=== PATIENT | male | born 1955 | race Two or more races ===

== ENCOUNTER 2024-01-17 09:26 | Inpatient (IN) | payer OTHER ==
[~2024-01-17] VITALS: Ht 170.2 cm; Wt 94.2 kg
[2024-01-17] MEDS: ASPirin 325 MG TAB PO ONE (10:04)
[2024-01-17] MEDS: methylPREDNISolone SOD SUCC 125 MG/2 ML VL IV ONE (10:40)
[2024-01-17 10:56] LABS: Basophils # (auto) 0.1 10 ^3/uL (0-0.2); Basophils % (auto) 0.5 % (0.0-2.0); Eosinophils # (auto) 0.8 10 ^3/uL (0-0.8); Eosinophils % (auto) 6.5 % (0.0-7.0); Hematocrit 48.6 % (41.0-53.0); Hemoglobin 16.6 g/dL (13.5-17.5); Lymphocytes # (auto) 3.9 10 ^3/uL (0.4-5.4); Lymphocytes % (auto) 31.2 % (10.0-50.0); Mean Corpuscular Hemoglobin 31.4 pg (28.0-32.0); Mean Corpuscular Hgb Conc. 34.3 g/dL (32.0-36.0); Mean Corpuscular Volume 91.7 fL (80.0-100.0); Monocytes # (auto) 0.9 10 ^3/uL (0-1.3); Neutrophils # (auto) 6.8 10 ^3/uL (1.6-8.6); Neutrophils % (auto) 54.8 % (37.0-80.0); Nucleated Red Blood Cells % 0.1 %; Platelet Count (auto) 294 10^3/uL (140-450); Red Blood Cells 5.29 10^6/uL (4.5-5.90); White Blood Cell 12.5 10^3/uL (4.4-10.8)
[2024-01-17 11:05] LABS: Chloride 101 mmol/L (98-107); Potassium 3.3 mmol/L (3.5-5.1); Sodium 136 mmol/L (136-145)
[2024-01-17 11:06] LABS: Anion Gap 6 (5-15); Carbon Dioxide 29 mmol/L (20-31)
[2024-01-17 11:11] LABS: BUN/Creatinine Ratio 12.1 (10.0-20.0); Blood Urea Nitrogen 8 mg/dL (9-23); Glucose 204 mg/dL (74-106)
[2024-01-17] MEDS ORDERED: hydrALAZINE HCL 20 MG/ML VL IV PRN (16:30)
[2024-01-17] MEDS ORDERED: ALBUTEROL SULF 2.5 MG/0.5ML(0.5%) NEB SOLN NEB PRN (16:30)
[2024-01-17] MEDS ORDERED: IPRATROPIUM BROM 0.5 MG/2.5ML INH SOL NEB PRN (16:30)
[2024-01-17] MEDS ORDERED: ONDANSETRON HCL 4 MG/2 ML VIAL IV PRN (16:30)
[2024-01-17] MEDS: POTASSIUM CHL 20 Meq TABLET PO ONE (16:30)
[2024-01-17] MEDS ORDERED: DEXTROSE (50%) 50ML SYRG IV PRN (16:30)
[2024-01-17 16:42] VITALS: BP 138/74; PULSE 75; RESP 20; TEMP 97.3; O2SAT 94
[2024-01-17] MEDS: InsuLIN REG 1unit/0.01ml Soln (100units/ml) SC SCH ×2 (17:00→22:59)
[2024-01-17] MEDS ORDERED: NITROGLYCERIN 0.4 MG SL TAB SL PRN (17:30)
[2024-01-17] MEDS ORDERED: MORPHINE SULFATE INJ 2 MG/ml SYRG IV PRN (17:30)
[2024-01-17] MEDS: ACCU-CHEK COMFORT CURVE STRIP VI SCH (20:00)
[2024-01-17] MEDS: methylPREDNISolone SOD SUCC 40 MG/ML VL IV SCH (20:07)
[2024-01-17 20:30] VITALS: PULSE 74; RESP 18; O2SAT 94
[2024-01-17] MEDS: SODIUM CHLORIDE 0.9% 1,000 ML IV SCH (20:50)
[2024-01-17] MEDS: AZITHROMYCIN 500MG/ 250ML 250 ML IV ONE (20:50)
[2024-01-17 22:03] VITALS: BP 141/82; PULSE 69; RESP 18; TEMP 98; O2SAT 93
[2024-01-17] MEDS: FAMOTIDINE (10MG/ML) 2ML VL IV SCH (22:53)
[2024-01-17] MEDS: ATORVASTATIN 20 MG TAB PO SCH (22:55)
[2024-01-17] MEDS: HYDROcodone-ACET 5/325MG TAB PO PRN (23:17)
[2024-01-17] MEDS ORDERED: SEMA2INJ3 SC (23:32)
[2024-01-17] MEDS ORDERED: INSUINJ37 SC (23:32)
[2024-01-17] MEDS ORDERED: AMLO1TAB22 PO (23:32)
[2024-01-17] MEDS ORDERED: ATOR-507 PO (23:32)
[2024-01-17] MEDS ORDERED: LOSA-534 PO (23:32)
[2024-01-17] MEDS ORDERED: CHLO25TA2 PO (23:32)
[2024-01-17] MEDS ORDERED: METO-289 PO (23:32)
[2024-01-18] VITALS (10 sets, daily range): BP systolic 113–159; BP diastolic 64–93; PULSE 75–92; RESP 17–20; TEMP 97.6–99.1; O2SAT 89–97
[2024-01-18 03:34] LABS: Urine Bacteria None Seen /hpf (None Seen); Urine WBC None Seen /hpf (0 - 3)
[2024-01-18 04:02] LABS: Urine Blood Negative /uL (Negative); Urine Clarity Clear (Clear); Urine Color Light-Yellow (Yellow); Urine Protein, UAD Negative (Negative); Urine Specific Gravity 1.027 (1.001-1.035); Urine Urobilinogen Normal (Negative)
[2024-01-18 06:32] LABS: Basophils # (auto) 0.1 10 ^3/uL (0-0.2); Basophils % (auto) 0.3 % (0.0-2.0); Eosinophils # (auto) 0 10 ^3/uL (0-0.8); Hematocrit 45.3 % (41.0-53.0); Hemoglobin 15.5 g/dL (13.5-17.5); Lymphocytes # (auto) 2.9 10 ^3/uL (0.4-5.4); Lymphocytes % (auto) 16.7 % (10.0-50.0); Mean Corpuscular Hemoglobin 31.4 pg (28.0-32.0); Mean Corpuscular Hgb Conc. 34.3 g/dL (32.0-36.0); Mean Corpuscular Volume 91.5 fL (80.0-100.0); Monocytes # (auto) 0.6 10 ^3/uL (0-1.3); Monocytes % (auto) 3.8 % (0.0-12.0); Neutrophils # (auto) 13.6 10 ^3/uL (1.6-8.6); Neutrophils % (auto) 79.2 % (37.0-80.0); Nucleated Red Blood Cells % 0.1 %; Platelet Count (auto) 308 10^3/uL (140-450); Red Blood Cells 4.95 10^6/uL (4.5-5.90); White Blood Cell 17.1 10^3/uL (4.4-10.8)
[2024-01-18 06:59] LABS: Alanine Aminotransferase 19 U/L (7-40); Albumin 4.1 g/dL (3.2-4.8); Alkaline Phosphatase 64 U/L (46-116); Anion Gap 9 (5-15); BUN/Creatinine Ratio 20.3 (10.0-20.0); Blood Urea Nitrogen 15 mg/dL (9-23); Calcium 9.7 mg/dL (8.7-10.4); Carbon Dioxide 26 mmol/L (20-31); Chloride 100 mmol/L (98-107); Glucose 290 mg/dL (74-106); Potassium 3.6 mmol/L (3.5-5.1); Sodium 135 mmol/L (136-145)
[2024-01-18 07:00] LABS: Aspartate Aminotransferase 11 U/L (13-40); Bilirubin, Total 0.5 mg/dL (0.2-1.0); Total Protein 6.6 g/dL (5.7-8.2)
[2024-01-18] MEDS: ACETAMINOPHEN 325 MG TAB PO PRN (09:01)
[2024-01-18] MEDS: ASPirin 81 mg TAB PO SCH (09:12)
[2024-01-18] MEDS: AZITHROMYCIN 500MG/ 250ML 250 ML IV SCH (09:35)
[2024-01-18] MEDS: cefTRIAXone 1GM/50ML D5W 50 ML IV SCH (16:30)
[2024-01-18] MEDS ORDERED: IPRATROPIUM BROM 0.5 MG/2.5ML INH SOL ONE (18:02)
[2024-01-18] MEDS ORDERED: ALBUTEROL SULF 2.5 MG/0.5ML(0.5%) NEB SOLN ONE (18:02)
[2024-01-18] MEDS: ALBUTEROL SULF 2.5 MG/0.5ML(0.5%) NEB SOLN NEB SCH (18:51)
[2024-01-18] MEDS: IPRATROPIUM BROM 0.5 MG/2.5ML INH SOL NEB SCH (18:51)
[2024-01-18] MEDS: NEOMYCIN-POLYM-GRAM OPTH(EYE) SOL 10ML EACHEYE SCH (20:39)
[2024-01-18] MEDS: INSULIN LANTUS (GLARGINE) 1 /0.01ml (100units/ml) SC SCH (23:29)
[2024-01-18] MEDS: DOCUSATE SOD 100 MG CAP PO PRN (23:40)
[2024-01-19] VITALS (13 sets, daily range): BP systolic 129–141; BP diastolic 70–82; PULSE 65–80; RESP 15–18; TEMP 97.2–97.9; O2SAT 90–99
[2024-01-19 07:05] LABS: Chloride 102 mmol/L (98-107); Potassium 3.6 mmol/L (3.5-5.1); Sodium 137 mmol/L (136-145)
[2024-01-19 07:06] LABS: Anion Gap 7 (5-15); Calcium 9.8 mg/dL (8.7-10.4); Carbon Dioxide 28 mmol/L (20-31)
[2024-01-19 07:08] LABS: Basophils # (auto) 0 10 ^3/uL (0-0.2); Basophils % (auto) 0.1 % (0.0-2.0); Eosinophils # (auto) 0 10 ^3/uL (0-0.8); Hematocrit 45.5 % (41.0-53.0); Hemoglobin 15.5 g/dL (13.5-17.5); Lymphocytes % (auto) 19.8 % (10.0-50.0); Mean Corpuscular Hemoglobin 31.7 pg (28.0-32.0); Mean Corpuscular Hgb Conc. 34.1 g/dL (32.0-36.0); Mean Corpuscular Volume 92.9 fL (80.0-100.0); Monocytes # (auto) 1.2 10 ^3/uL (0-1.3); Neutrophils # (auto) 15.2 10 ^3/uL (1.6-8.6); Neutrophils % (auto) 74.1 % (37.0-80.0); Platelet Count (auto) 313 10^3/uL (140-450); Red Cell Distribution Width 13.7 % (11.8-14.3); White Blood Cell 20.5 10^3/uL (4.4-10.8)
[2024-01-19 07:11] LABS: BUN/Creatinine Ratio 24.1 (10.0-20.0); Blood Urea Nitrogen 19 mg/dL (9-23); Glucose 234 mg/dL (74-106)
[2024-01-19] MEDS ORDERED: DEXTROSE (50%) 50ML SYRG IV PRN ×2 (09:45→13:00)
[2024-01-19] MEDS: EMPAGLIFLOZIN 10 MG TAB PO SCH (11:30)
[2024-01-19] MEDS ORDERED: ACCU-CHEK COMFORT CURVE STRIP VI SCH (12:00)
[2024-01-19] MEDS ORDERED: InsuLIN REG 1unit/0.01ml Soln (100units/ml) SC SCH (12:00)
[2024-01-19] MEDS: InsuLIN REG 1unit/0.01ml Soln (100units/ml) SC ONE (17:00)
[2024-01-19] MEDS: ACCU-CHEK COMFORT CURVE STRIP VI SCH (19:38)
[2024-01-19] MEDS: InsuLIN REG 1unit/0.01ml Soln (100units/ml) SC SCH (19:51)
[2024-01-20] VITALS (11 sets, daily range): BP systolic 101–136; BP diastolic 38–82; PULSE 64–88; RESP 14–76; TEMP 97.5–98.3; O2SAT 94–98
[2024-01-20 08:31] LABS: Basophils # (auto) 0.1 10 ^3/uL (0-0.2); Basophils % (auto) 0.7 % (0.0-2.0); Eosinophils # (auto) 0.2 10 ^3/uL (0-0.8); Eosinophils % (auto) 1.8 % (0.0-7.0); Hematocrit 51.8 % (41.0-53.0); Hemoglobin 17.5 g/dL (13.5-17.5); Lymphocytes # (auto) 5.7 10 ^3/uL (0.4-5.4); Lymphocytes % (auto) 46.2 % (10.0-50.0); Mean Corpuscular Hemoglobin 31.3 pg (28.0-32.0); Mean Corpuscular Hgb Conc. 33.8 g/dL (32.0-36.0); Mean Corpuscular Volume 92.6 fL (80.0-100.0); Monocytes # (auto) 0.9 10 ^3/uL (0-1.3); Monocytes % (auto) 7.1 % (0.0-12.0); Neutrophils # (auto) 5.4 10 ^3/uL (1.6-8.6); Neutrophils % (auto) 44.2 % (37.0-80.0); Nucleated Red Blood Cells % 0.1 %; Platelet Count (auto) 325 10^3/uL (140-450); Red Blood Cells 5.59 10^6/uL (4.5-5.90); Red Cell Distribution Width 14.1 % (11.8-14.3); White Blood Cell 12.3 10^3/uL (4.4-10.8)
[2024-01-20 08:44] LABS: Anion Gap 8 (5-15); Carbon Dioxide 31 mmol/L (20-31); Chloride 102 mmol/L (98-107); Potassium 3.3 mmol/L (3.5-5.1); Sodium 141 mmol/L (136-145)
[2024-01-20 08:46] LABS: Calcium 9.9 mg/dL (8.7-10.4)
[2024-01-20 08:50] LABS: Glucose 152 mg/dL (74-106)
[2024-01-20 08:51] LABS: Blood Urea Nitrogen 15 mg/dL (9-23)
[2024-01-20] MEDS: POTASSIUM EFFERVESENT TAB 25 MEQ PO ONE (14:22)
== END 2024-01-20 18:15 | disposition home or self-care (01) | DRG 177 ==
LOC: ER 09:26 → TELE 17:28 → TELE-WESTW 22:06 → WEST WING 01-19 15:18
PROVIDERS: ADMIT Nurse Practitioner Family; ATTEND Nurse Practitioner Acute Care
DX: J15.69 Pneumonia due to other Gram-negative bacteria (principal); J96.01 Acute respiratory failure with hypoxia; R65.11 Systemic inflammatory response syndrome (SIRS) of non-infectious origin with acute organ dysfunction; J44.0 Chronic obstructive pulmonary disease with (acute) lower respiratory infection; J15.9 Unspecified bacterial pneumonia; E87.6 Hypokalemia; E11.65 Type 2 diabetes mellitus with hyperglycemia; I10 Essential (primary) hypertension; E66.9 Obesity, unspecified; H10.9 Unspecified conjunctivitis; Z68.32 Body mass index [BMI] 32.0-32.9, adult; Z88.8 Allergy status to other drugs, medicaments and biological substances
CPT/HCPCS: 36415; 71045; 80048; 80053; 81001; 82962; 83036; 84484; 85025; 93005; 94640; 96365; 96375; G0378; J1815; J3490